=== PATIENT | male | born 1965 | race Caucasian/White ===

== ENCOUNTER → 2023-09-17 16:46 | Outpatient (REF) | payer BC, SELFPAY | LOC: RAD 16:46 | PROVIDERS: ATTENDING PHYSICIAN Specialist; FAMILY PHYSICIAN Internal Medicine | DX: N20.0 Calculus of kidney (principal); D30.3 Benign neoplasm of bladder | CPT/HCPCS: 76770 ==

== ENCOUNTER → 2023-10-13 11:18 | Outpatient (REF) | payer BC, SELFPAY | LOC: MRI 3T 11:18 | PROVIDERS: ATTENDING PHYSICIAN Physician Assistant Surgical; FAMILY PHYSICIAN Internal Medicine | DX: M25.562 Pain in left knee (principal) | CPT/HCPCS: 73721 ==

== ENCOUNTER 2023-11-02 06:23 | Day surgery (SDC) | payer BC, SELFPAY ==
[2023-10-25 06:39] VITALS: BMI 36.4
--- NOTE | 2023-10-25 16:47 | PTCARENOTE ---
Abn ECG, Dr. Rodas notified, no requests made.
[2023-11-02] VITALS (8 sets, daily range): BP systolic 100–126; BP diastolic 58–81; BMI 36.4
[2023-11-02] MEDS: TYLENOL 1000 MG PO (06:37)
[2023-11-02] MEDS: CELEBREX 200 MG PO (06:38)
[2023-11-02] MEDS: NORMOSOL-R/PLASMALYTE-A 1000 IV (06:47)
== END 2023-11-02 11:10 | disposition home or self-care (01) ==
LOC: SDS 06:23
PROVIDERS: ATTENDING PHYSICIAN Specialist; FAMILY PHYSICIAN Internal Medicine
DX: S83.242A Other tear of medial meniscus, current injury, left knee, initial encounter (principal); S83.282A Other tear of lateral meniscus, current injury, left knee, initial encounter; X58.XXXA Exposure to other specified factors, initial encounter; M22.42 Chondromalacia patellae, left knee
CPT/HCPCS: 29880; 93005

== ENCOUNTER → 2024-01-22 06:56 | Outpatient (REF) | payer BC, SELFPAY | LOC: DHCBC/DCA 06:56 | PROVIDERS: ATTENDING PHYSICIAN Student in an Organized Health Care Education/Training Program; FAMILY PHYSICIAN Internal Medicine | DX: I25.10 Atherosclerotic heart disease of native coronary artery without angina pectoris (principal) | CPT/HCPCS: 78452; 93017; A9500 ==

== ENCOUNTER → 2024-09-17 16:44 | Outpatient (REF) | payer BC, SELFPAY ==
[2024-09-17 17:26] LABS: Hematocrit 41.5 % (39.0-52.0); Hemoglobin 13.9 g/dL (13.0-18.0); Mean Corp Hgb Conc. 33.5 g/dL (33.0-37.0); Mean Corpuscular Volume 88.9 fL (80.0-94.0); Nucleated Red Blood Cells % 0 % (-); Platelet Count 189 10^3/uL (130-400); Red Cell Dist. Width 12.8 % (11.5-14.5)
[2024-09-17 17:46] LABS: ALT (SGPT) 33 U/L (0-50); AST (SGOT) 24 U/L (17-59); Albumin 4.6 g/dl (3.5-5.0); Alkaline Phosphatase 79 U/L (38-126); Blood Urea Nitrogen 13 mg/dl (9-20); Calcium 9.5 mg/dl (8.4-10.2); Carbon Dioxide 30 mmol/L (22-30); Chloride 104 mmol/L (98-107); Glucose 86 mg/dl (70-99); HDL Cholesterol 53 mg/dl; LDL Cholesterol, Calculated 69 mg/dl; Potassium 4.9 mmol/L (3.5-5.1); Sodium 138 mmol/L (135-145); Total Protein 6.7 g/dl (6.3-8.2); Very Low Density Lipoprotein 28 mg/dl (0-30); eGFR > 60.00
[2024-09-17 18:18] LABS: PSA, Total - Diagnostic 1.40 ng/ml (0.0-4.0)
[2024-09-18 08:32] LABS: Glycohemoglobin (HgbA1c) 5.3 % (4.0-5.6)
== END ==
LOC: REG 16:44
PROVIDERS: ATTENDING PHYSICIAN Internal Medicine
DX: Z00.00 Encounter for general adult medical examination without abnormal findings (principal); E78.2 Mixed hyperlipidemia; I10 Essential (primary) hypertension; Z12.5 Encounter for screening for malignant neoplasm of prostate; E66.9 Obesity, unspecified; I25.10 Atherosclerotic heart disease of native coronary artery without angina pectoris; D30.3 Benign neoplasm of bladder; E11.9 Type 2 diabetes mellitus without complications
CPT/HCPCS: 36415; 80053; 80061; 83036; 84153; 85025